=== PATIENT | female | born 1980 | race Caucasian/White ===

== ENCOUNTER 2020-09-11 05:39 | Inpatient (IN) | payer MEDICAID, OTHER ==
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
[2020-09-11] MEDS: Sodium Chloride 0.9% 1,000 ML IV SCH ×2 (06:33→14:30)
[2020-09-11] MEDS ORDERED: Iopamidol 612 MG/ML 100 ML Bottle IVPUSH ONE (09:35)
[2020-09-11] MEDS ORDERED: Sodium Chloride 0.9% 10 ML Syringe FLUSH SCH (09:45)
[2020-09-11] MEDS ORDERED: Piperacillin/Tazobactam 4.5 GM in Sodium Chloride 0.9% 100 ML IV ONE (10:42)
[2020-09-11] MEDS ORDERED: Vancomycin 1.5 GM in Sodium Chloride 0.9% 500 ML IV ONE (12:00)
[2020-09-11] MEDS ORDERED: Ondansetron 4 MG Tab.DIS PO PRN (14:21)
--- NOTE | 2020-09-11 14:25 | PCM.HP.2 ---
H&P History of Present Illness - General Date of Service: 09/11/20 Admit Problem/Dx: Admission Diagnosis/Problem Admission Diagnosis/Problem Cellulitis - History of Present Illness Initial Comments - Free Text/Narative: 40-year-old female with history of methamphetamine use presents to the emergency department because of increasing pain, redness, and swelling on the right side of her face. She states that she had some swelling in the left side of her face earlier this week and it progressed to the right side of the face. Became severe and she presented to the emergency department. She had some lesions on her fingers which she lanced on her own that did have some pus. She had another lesion on her left eyebrow which she also tried to emiliana but no pus was removed. Patient states that for the last 3 weeks she has been using methamphetamines. She denies IV drug use recently. She has been smoking her meth. Patient states that she has used IV drugs in the past. She was clean from drugs for the last 3 years until 3 weeks ago. Her last HIV test was 2 to 3 years ago. Currently she denies any fever, chills, night sweats, weight loss. CT of the face showed marked edema of the right facial soft tissues. Finding is compatible with facial cellulitis. The clinical studies specialist muscle on the right is enlar ged. There is a possible focal fluid collection measuring 1.5 x 1.1 cm within the substance of the mastication muscle. This could represent an intramuscular phlegmon or potentially abscess. Dr. Humble Anderson, the ER physician, discussed the case with Dr. Rao and Dr. Villatoro, ENT and maxillofacial respectively, and they recommended IV antibiotics and thorough dental evaluation. Unfortunately neither [facility] nor we have any dentists available to do consultation in hospital. Therefore, recommendation was to start IV antibiotics and if she improves she could do a thorough dental evaluation sometime this week. She was then started on Zosyn and vancomycin in the emergency department. Right Face/Facial Pain Score (Numeric/FACES): 7 - Related Data Allergies/Adverse Reactions: Allergies Allergy/AdvReac Type Severity Reaction Status Date / Time Penicillins AdvReac Nausea and Verified 09/11/20 15:15 Vomiting Home Medications: Home Meds Albuterol/Ipratropium [Combivent Respimat] 1 dose INH QID 09/11/15 [History] B12/Levomefolate Calcium/B-6 [Foltx Tablet] 1 tab PO BID 09/11/15 [History] Diclofenac Sodium [Diclofenac Sodium ER] 75 mg PO BID 09/11/15 [History] Gabapentin [Neurontin] 400 mg PO TID 09/11/15 [History] Lidocaine 5% [Lidoderm 5%] 1 patch TOP DAILY 09/11/15 [History] Pantoprazole [Protonix] 40 mg PO DAILY 09/11/15 [History] predniSONE [Prednisone] 40 mg PO DAILY #10 tablet 09/11/15 [Rx] Past Medical History HEENT History: Reports: None Cardiovascular History: Reports: None Respiratory History: Reports: Other (See Below) Other Respiratory History: Lung Infection; had surgery to the right lung and also a chest tube Gastrointestinal History: Reports: None Genitourinary History: Reports: None MARKETING DIRECTOR History: Reports: None Musculoskeletal History: Reports: None Neurological History: Reports: None Psychiatric History: Reports: None Endocrine/Metabolic History: Reports: None Hematologic History: Reports: None Immunologic History: Reports: None Oncologic (Cancer) History: Reports: None Dermatologic History: Reports: None - Infectious Disease History Infectious Disease History: Reports: None - Past Surgical History Respiratory Surgical History: Reports: Other (See Below) GI Surgical History: Reports: Other (See Below) Social & Family History - Family History Family Medical History: No Pertinent Family History - Tobacco Use Tobacco Use Status *Q: Current Every Day Tobacco User Years of Tobacco use: 20 Packs/Tins Daily: 0.7 Used Tobacco, but Quit: No - Caffeine Use Caffeine Use: Reports: None - Recreational Drug Use Recreational Drug Use: Yes Recreational Drug Type: Reports: Methamphetamine Recreational Drug Use Frequency: Daily H&P Review of Systems - Review of Systems: Review Of Systems: Comprehensive ROS is negative, except as noted in HPI. Exam - Exam Exam: See Below - Vital Signs Vital Signs: Last Vital Signs Temp 97.7 F 09/11/20 05:50 Pulse 81 09/11/20 05:50 Resp 16 09/11/20 05:50 BP 128/79 09/11/20 05:50 Pulse Ox 98 09/11/20 05:50 Weight: 157 lb 9.6 oz - Exam General: Alert, Oriented, 4 HEENT: Conjunctiva Clear, Hearing Intact, Other (Severe swelling of the face right worse than left. Decreased range of motion of the jaw and therefore thorough evaluation of the teeth was not possible. There were several rotting teeth and dental caries noted.) - Patient Data Lab Results Last 24 hrs: Laboratory Results - last 24 hr 09/11/20 09/11/20 09/11/20 Range/Units 06:19 06:19 06:19 WBC 10.95 H (3.98-10.04) K/mm3 RBC 4.21 (3.98-5.22) M/mm3 Hgb 12.4 D (11.2-15.7) gm/dl Hct 37.7 (34.1-44.9) % MCV 89.5 (79.4-94.8) fl MCH 29.5 (25.6-32.2) pg MCHC 32.9 (32.2-35.5) g/dl RDW Std Deviation 40.7 (36.4-46.3) fL Plt Count 294 (182-369) K/mm3 MPV 9.4 (9.4-12.3) fl Neutrophils % (Manual) 82 H (40-60) % Band Neutrophils % 1 (0-10) % Lymphocytes % (Manual) 10 L (20-40) % Atypical Lymphs % 0 % Monocytes % (Manual) 3 (2-10) % Eosinophils % (Manual) 3 (0.7-5.8) % Basophils % (Manual) 1 (0.1-1.2) Platelet Estimate Adequate Plt Morphology Comment Normal Stomatocytes Few RBC Morph Comment Not Reportable ESR 11 (0-20) mm/hr D-Dimer, Quantitative (0.19-0.50) mg/L Sodium 139 (136-145) mEq/L Potassium 3.5 (3.5-5.1) mEq/L Chloride 102 (98-107) mEq/L Carbon Dioxide 28 (21-32) mEq/L Anion Gap 12.5 (5-15) BUN 11 (7-18) mg/dL Creatinine 0.7 (0.55-1.02) mg/dL Est Cr Clr Drug Dosing TNP Estimated GFR (MDRD) > 60 (>60) mL/min BUN/Creatinine Ratio 15.7 (14-18) Glucose 88 (74-106) mg/dL Lactic Acid (0.4-2.0) mmol/L Calcium 8.7 (8.5-10.1) mg/dL Magnesium 1.9 (1.8-2.4) mg/dl Total Bilirubin 0.5 (0.2-1.0) mg/dL AST 14 L (15-37) U/L ALT 17 (14-59) U/L Alkaline Phosphatase 85 (46-116) U/L Creatine Kinase 83 (26-192) U/L Troponin I < 0.017 (0.00-0.056) ng/mL C-Reactive Protein 3.0 H* (<1.0) mg/dL Total Protein 7.2 (6.4-8.2) g/dl Albumin 3.2 L (3.4-5.0) g/dl Globulin 4.0 gm/dL Albumin/Globulin Ratio 0.8 L (1-2) TSH 3rd Generation 3.141 (0.358-3.74) uIU/mL HCG, Qual (NEGATIVE) Urine Color (Yellow) Urine Appearance (Clear) Urine pH (5.0-8.0) Ur Specific [place] (1.005-1.030) Urine Protein (Negative) Urine Glucose (UA) (Negative) Urine Ketones (Negative) Urine Occult Blood (Negative) Urine Nitrite (Negative) Urine Bilirubin (Negative) Urine Urobilinogen (0.2-1.0) Ur Leukocyte Esterase (Negative) Urine RBC (0-5) /hpf Urine WBC (0-5) /hpf Ur Epithelial Cells (0-5) /hpf Urine Bacteria (FEW) /hpf Urine Mucus (FEW) /hpf Urine Opiates Screen (MELNBF=833) Ur Buprenorphine Scrn (CUTOFF=10) Ur Oxycodone Screen (KSR4KS=737) Urine Methadone Screen (BEJRAP=155) Ur Propoxyphene Screen (NBDSAO=809) Ur Barbiturates Screen (IZDILV=311) Ur Tricyclics Screen (DISQRD=458) Ur Phencyclidine Scrn (CUTOFF=25) Ur Amphetamine Screen (VMOHDC=283) U Methamphetamines Scrn (SMJZGQ=251) U Benzodiazepines Scrn (OGFGHE=225) U Cocaine Metab Screen (XOVVUV=906) U Marijuana (THC) Screen (CUTOFF=50) Ethyl Alcohol 0.00 (0.00) gm% SARS-CoV-2 RNA (DELFINO) (NEGATIVE) MRSA (PCR) 0409/11/20 09/11/20 Range/Units 06:19 06:19 06:19 WBC (3.98-10.04) K/mm3 RBC (3.98-5.22) M/mm3 Hgb (11.2-15.7) gm/dl Hct (34.1-44.9) % MCV (79.4-94.8) fl MCH (25.6-32.2) pg MCHC (32.2-35.5) g/dl RDW Std Deviation (36.4-46.3) fL Plt Count (182-369) K/mm3 MPV (9.4-12.3) fl Neutrophils % (Manual) (40-60) % Band Neutrophils % (0-10) % Lymphocytes % (Manual) (20-40) % Atypical Lymphs % % Monocytes % (Manual) (2-10) % Eosinophils % (Manual) (0.7-5.8) % Basophils % (Manual) (0.1-1.2) Platelet Estimate Plt Morphology Comment Stomatocytes RBC Morph Comment ESR (0-20) mm/hr D-Dimer, Quantitative 0.24 (0.19-0.50) mg/L Sodium (136-145) mEq/L Potassium (3.5-5.1) mEq/L Chloride (98-107) mEq/L Carbon Dioxide (21-32) mEq/L Anion Gap (5-15) BUN (7-18) mg/dL Creatinine (0.55-1.02) mg/dL Est Cr Clr Drug Dosing Estimated GFR (MDRD) (>60) mL/min BUN/Creatinine Ratio (14-18) Glucose (74-106) mg/dL Lactic Acid 0.7 (0.4-2.0) mmol/L Calcium (8.5-10.1) mg/dL Magnesium (1.8-2.4) mg/dl Total Bilirubin (0.2-1.0) mg/dL AST (15-37) U/L ALT (14-59) U/L Alkaline Phosphatase (46-116) U/L Creatine Kinase (26-192) U/L Troponin I (0.00-0.056) ng/mL C-Reactive Protein (<1.0) mg/dL Total Protein (6.4-8.2) g/dl Albumin (3.4-5.0) g/dl Globulin gm/dL Albumin/Globulin Ratio (1-2) TSH 3rd Generation (0.358-3.74) uIU/mL HCG, Qual Negative (NEGATIVE) Urine Color (Yellow) Urine Appearance (Clear) Urine pH (5.0-8.0) Ur Specific [place] (1.005-1.030) Urine Protein (Negative) Urine Glucose (UA) (Negative) Urine Ketones (Negative) Urine Occult Blood (Negative) Urine Nitrite (Negative) Urine Bilirubin (Negative) Urine Urobilinogen (0.2-1.0) Ur Leukocyte Esterase (Negative) Urine RBC (0-5) /hpf Urine WBC (0-5) /hpf Ur Epithelial Cells (0-5) /hpf Urine Bacteria (FEW) /hpf Urine Mucus (FEW) /hpf Urine Opiates Screen (VMTHZO=684) Ur Buprenorphine Scrn (CUTOFF=10) Ur Oxycodone Screen (YPV2OL=395) Urine Methadone Screen (PDNBOH=251) Ur Propoxyphene Screen (EUHSBD=845) Ur Barbiturates Screen (QCIHAM=128) Ur Tricyclics Screen (QMSIDN=252) Ur Phencyclidine Scrn (CUTOFF=25) Ur Amphetamine Screen (ZVWDNU=593) U Methamphetamines Scrn (GOXHEF=019) U Benzodiazepines Scrn (LRZJDX=698) U Cocaine Metab Screen (RUQJVF=175) U Marijuana (THC) Screen (CUTOFF=50) Ethyl Alcohol (0.00) gm% SARS-CoV-2 RNA (DELFINO) (NEGATIVE) MRSA (PCR) 09/11/20 09/11/20 09/11/20 Range/Units 06:35 07:55 07:55 WBC (3.98-10.04) K/mm3 RBC (3.98-5.22) M/mm3 Hgb (11.2-15.7) gm/dl Hct (34.1-44.9) % MCV (79.4-94.8) fl MCH (25.6-32.2) pg MCHC (32.2-35.5) g/dl RDW Std Deviation (36.4-46.3) fL Plt Count (182-369) K/mm3 MPV (9.4-12.3) fl Neutrophils % (Manual) (40-60) % Band Neutrophils % (0-10) % Lymphocytes % (Manual) (20-40) % Atypical Lymphs % % Monocytes % (Manual) (2-10) % Eosinophils % (Manual) (0.7-5.8) % Basophils % (Manual) (0.1-1.2) Platelet Estimate Plt Morphology Comment Stomatocytes RBC Morph Comment ESR (0-20) mm/hr D-Dimer, Quantitative (0.19-0.50) mg/L Sodium (136-145) mEq/L Potassium (3.5-5.1) mEq/L Chloride (98-107) mEq/L Carbon Dioxide (21-32) mEq/L Anion Gap (5-15) BUN (7-18) mg/dL Creatinine (0.55-1.02) mg/dL Est Cr Clr Drug Dosing Estimated GFR (MDRD) (>60) mL/min BUN/Creatinine Ratio (14-18) Glucose (74-106) mg/dL Lactic Acid (0.4-2.0) mmol/L Calcium (8.5-10.1) mg/dL Magnesium (1.8-2.4) mg/dl Total Bilirubin (0.2-1.0) mg/dL AST (15-37) U/L ALT (14-59) U/L Alkaline Phosphatase (46-116) U/L Creatine Kinase (26-192) U/L Troponin I (0.00-0.056) ng/mL C-Reactive Protein (<1.0) mg/dL Total Protein (6.4-8.2) g/dl Albumin (3.4-5.0) g/dl Globulin gm/dL Albumin/Globulin Ratio (1-2) TSH 3rd Generation (0.358-3.74) uIU/mL HCG, Qual (NEGATIVE) Urine Color Yellow (Yellow) Urine Appearance Clear (Clear) Urine pH 6.5 (5.0-8.0) Ur Specific [place] 1.025 (1.005-1.030) Urine Protein Negative (Negative) Urine Glucose (UA) Negative (Negative) Urine Ketones Negative (Negative) Urine Occult Blood Negative (Negative) Urine Nitrite Negative (Negative) Urine Bilirubin Negative (Negative) Urine Urobilinogen 0.2 (0.2-1.0) Ur Leukocyte Esterase 1+ H (Negative) Urine RBC 0-5 (0-5) /hpf Urine WBC 0-5 (0-5) /hpf Ur Epithelial Cells 0-5 (0-5) /hpf Urine Bacteria Few (FEW) /hpf Urine Mucus Rare (FEW) /hpf Urine Opiates Screen Negative (LNBPBJ=061) Ur Buprenorphine Scrn Negative (CUTOFF=10) Ur Oxycodone Screen Negative (MAI2BN=905) Urine Methadone Screen Negative (IGBSUY=850) Ur Propoxyphene Screen Negative (ORBPUI=677) Ur Barbiturates Screen Negative (WJYTYM=837) Ur Tricyclics Screen Negative (ZPJUHL=370) Ur Phencyclidine Scrn Negative (CUTOFF=25) Ur Amphetamine Screen Presumptive positive H (IVSGDM=792) U Methamphetamines Scrn Presumptive positive H (XTNNIB=783) U Benzodiazepines Scrn Negative (EWVBQQ=122) U Cocaine Metab Screen Negative (JGWUKM=480) U Marijuana (THC) Screen Negative (CUTOFF=50) Ethyl Alcohol (0.00) gm% SARS-CoV-2 RNA (DELFINO) Negative (NEGATIVE) MRSA (PCR) 09/11/20 Range/Units 08:27 WBC (3.98-10.04) K/mm3 RBC (3.98-5.22) M/mm3 Hgb (11.2-15.7) gm/dl Hct (34.1-44.9) % MCV (79.4-94.8) fl MCH (25.6-32.2) pg MCHC (32.2-35.5) g/dl RDW Std Deviation (36.4-46.3) fL Plt Count (182-369) K/mm3 MPV (9.4-12.3) fl Neutrophils % (Manual) (40-60) % Band Neutrophils % (0-10) % Lymphocytes % (Manual) (20-40) % Atypical Lymphs % % Monocytes % (Manual) (2-10) % Eosinophils % (Manual) (0.7-5.8) % Basophils % (Manual) (0.1-1.2) Platelet Estimate Plt Morphology Comment Stomatocytes RBC Morph Comment ESR (0-20) mm/hr D-Dimer, Quantitative (0.19-0.50) mg/L Sodium (136-145) mEq/L Potassium (3.5-5.1) mEq/L Chloride (98-107) mEq/L Carbon Dioxide (21-32) mEq/L Anion Gap (5-15) BUN (7-18) mg/dL Creatinine (0.55-1.02) mg/dL Est Cr Clr Drug Dosing Estimated GFR (MDRD) (>60) mL/min BUN/Creatinine Ratio (14-18) Glucose (74-106) mg/dL Lactic Acid (0.4-2.0) mmol/L Calcium (8.5-10.1) mg/dL Magnesium (1.8-2.4) mg/dl Total Bilirubin (0.2-1.0) mg/dL AST (15-37) U/L ALT (14-59) U/L Alkaline Phosphatase (46-116) U/L Creatine Kinase (26-192) U/L Troponin I (0.00-0.056) ng/mL C-Reactive Protein (<1.0) mg/dL Total Protein (6.4-8.2) g/dl Albumin (3.4-5.0) g/dl Globulin gm/dL Albumin/Globulin Ratio (1-2) TSH 3rd Generation (0.358-3.74) uIU/mL HCG, Qual (NEGATIVE) Urine Color (Yellow) Urine Appearance (Clear) Urine pH (5.0-8.0) Ur Specific [place] (1.005-1.030) Urine Protein (Negative) Urine Glucose (UA) (Negative) Urine Ketones (Negative) Urine Occult Blood (Negative) Urine Nitrite (Negative) Urine Bilirubin (Negative) Urine Urobilinogen (0.2-1.0) Ur Leukocyte Esterase (Negative) Urine RBC (0-5) /hpf Urine WBC (0-5) /hpf Ur Epithelial Cells (0-5) /hpf Urine Bacteria (FEW) /hpf Urine Mucus (FEW) /hpf Urine Opiates Screen (DMLALB=247) Ur Buprenorphine Scrn (CUTOFF=10) Ur Oxycodone Screen (TBE3WQ=194) Urine Methadone Screen (ROTVJS=966) Ur Propoxyphene Screen (IKQUPQ=418) Ur Barbiturates Screen (DLZTMY=077) Ur Tricyclics Screen (EGRTCY=696) Ur Phencyclidine Scrn (CUTOFF=25) Ur Amphetamine Screen (RPQQZY=475) U Methamphetamines Scrn (XKUPWB=986) U Benzodiazepines Scrn (WQBTZJ=005) U Cocaine Metab Screen (MJQWQT=373) U Marijuana (THC) Screen (CUTOFF=50) Ethyl Alcohol (0.00) gm% SARS-CoV-2 RNA (DELFINO) (NEGATIVE) MRSA (PCR) Negative Result Diagrams: 09/11/20 06:19 09/11/20 06:19 Sepsis Event Note - Evaluation Sepsis Screening Result: No Definite Risk - Focused Exam Vital Signs: Vital Signs Temp Pulse Resp BP Pulse Ox 09/11/20 05:50 97.7 F 81 16 128/79 98 - Problem List (1) Methamphetamine abuse SNOMED Code(s): 939340511 ICD Code: F15.10 - OTHER STIMULANT ABUSE, UNCOMPLICATED Status: Acute Current Visit: Yes (2) Cellulitis of face SNOMED Code(s): 882715134 ICD Code: L03.211 - CELLULITIS OF FACE Status: Acute Current Visit: Yes Problem List Initiated/Reviewed/Updated: Yes Orders Last 24hrs: Active Orders 24 hr Category Date Time Status Admission Status [Patient Status] [ADT] Routine ADT 09/11/20 12:05 Active Oxygen Therapy [RC] PRN Care 09/11/20 14:21 Ordered Up ad Nisha [RC] ASDIRECTED Care 09/11/20 14:21 Ordered VTE/DVT Education [RC] PER UNIT ROUTINE Care 09/11/20 14:21 Ordered Vital Signs [RC] Q4H Care 09/11/20 14:21 Ordered Regular Diet [DIET] Diet 09/11/20 Dinner Ordered Chest 1V Frontal [CR] Stat Exams 09/11/20 05:55 Taken Soft Tissue Neck w Cont [CT] Stat Exams 09/11/20 08:24 Taken CBC WITH AUTO DIFF [HEME] AM Lab 09/12/20 05:11 Ordered CMP [COMPREHENSIVE METABOLIC PN,CMP] [CHEM] AM Lab 09/12/20 05:11 Ordered CULTURE BLOOD [BC] Stat Lab 09/11/20 06:19 Received CULTURE BLOOD [BC] Stat Lab 09/11/20 06:30 Received CULTURE URINE [RM] Stat Lab 09/11/20 07:55 Received HEPATITIS C ANTIBODY [CHEM] Routine Lab 09/11/20 14:24 Ordered HIV RAPID SCREEN RLFX COMFIRM [CHEM] Routine Lab 09/11/20 14:23 Ordered MAGNESIUM [CHEM] AM Lab 09/12/20 05:11 Ordered VANCOMYCIN TROUGH [CHEM] Timed Lab 09/13/20 09:30 Ordered Acetaminophen [TylenoL] Med 09/11/20 14:21 Ordered 650 mg PO Q4H PRN Enoxaparin [Lovenox] Med 09/12/20 09:00 Ordered 40 mg SUBCUT DAILY Ondansetron [Zofran ODT] Med 09/11/20 14:21 Ordered 4 mg PO Q4H PRN Pharmacy to Dose - Vancomycin Med 09/11/20 14:15 Ordered 1 dose .XX ASDIRECTED Piperacillin/Tazobactam [Piperacil-Tazobact] 4.5 gm Med 09/11/20 14:15 Ordered Sodium Chloride 0.9% [Normal Saline] 100 ml IV Q8H Sodium Chloride 0.9% [Normal Saline] 1,000 ml Med 09/11/20 06:00 Active IV ASDIRECTED Sodium Chloride 0.9% [Saline Flush] Med 09/11/20 09:45 Active 10 ml FLUSH ASDIRECTED Vancomycin [Vancocin] 1 gm Med 09/11/20 22:00 Active Sodium Chloride 0.9% [Normal Saline (AdvBag)] 250 ml IV Q12H oxyCODONE Med 09/11/20 14:21 Ordered 5 - 10 mg PO Q4H PRN Blood Culture x2 Reflex Set [OM.PC] Stat Oth 09/11/20 05:56 Ordered Resuscitation Status Routine Resus Stat 09/11/20 14:21 Ordered Medication Orders Acetaminophen (Acetaminophen 325 Mg Tab) 650 mg PO Q4H PRN PRN Reason: Pain (Mild 1-3)/fever Enoxaparin Sodium (Enoxaparin 40 Mg/0.4 Ml Syringe) 40 mg SUBCUT DAILY [facility] Sodium Chloride (Normal Saline) 1,000 mls @ 150 mls/hr IV ASDIRECTED ALIREZA Last Admin: 09/11/20 06:33 Dose: 150 mls/hr Documented by: DINORA Piperacillin Sod/Tazobactam (Sod 4.5 gm/ Sodium Chloride) 100 mls @ 25 mls/hr IV Q8H ALIREZA Vancomycin HCl 1 gm/ Sodium (Chloride) 250 mls @ 250 mls/hr IV Q12H ALIREZA Ondansetron HCl (Ondansetron 4 Mg Tab.Dis) 4 mg PO Q4H PRN PRN Reason: nausea, able to take PO Oxycodone HCl (Oxycodone 5 Mg Tab) 5 - 10 mg PO Q4H PRN PRN Reason: Pain (moderate 4-6) Sodium Chloride (Sodium Chloride 0.9% 10 Ml Syringe) 10 ml FLUSH ASDIRECTED [facility] Last Admin: 09/11/20 09:56 Dose: 10 ml Documented by: KARO Vancomycin HCl (Pharmacy To Dose - Vancomycin) 1 dose .XX ASDIRECTED [facility] Assessment/Plan Comment:: Assessment 40-year-old female with history of methamphetamine abuse presents to the emergency department with worsening of facial swelling for the last several days. Cellulitis of the face Possible 1.5 x 1.1 cm abscess within the substance of the clinical studies specialist muscle * CT scan shows right-sided facial cellulitis with possible abscess * Mildly elevated WBC 10.95 with 82% neutrophils of 1% bands * ESR normal at 11 * CRP 3.0 * Lactic acid 0.7 * No signs of sepsis. * Started on Zosyn and vancomycin in the emergency department * Dr. Paredes, ER physician, consulted both ENT, Dr. Rao and maxillofacial surgeon, Dr. Villatoro Plan * Admit to medical floor * Continue Zosyn and vancomycin * Follow CBC, CRP, CMP Methamphetamine abuse * Discussed with the patient and appears she does want some help with her addiction * Will get HIV and hepatitis C screen * Consult social media editor VTE prophylaxis with Lovenox CODE STATUS full code - Mortality Measure Prognosis:: Good
[2020-09-11] MEDS: Piperacillin/Tazobactam 4.5 GM in Sodium Chloride 0.9% 100 ML IV SCH (18:04)
[2020-09-11] MEDS: oxyCODONE 5 MG Tab PO PRN (18:53)
[2020-09-12] MEDS: Piperacillin/Tazobactam 4.5 GM in Sodium Chloride 0.9% 100 ML IV SCH ×3 (03:38→20:07)
[2020-09-12] MEDS: oxyCODONE 5 MG Tab PO PRN ×3 (03:38→16:28)
--- NOTE | 2020-09-12 07:52 | CT ---
CT neck Technique: Multiple axial sections through the neck were obtained. Intravenous contrast was utilized. Reconstructed coronal and sagittal images were obtained. Comparison: No prior neck exam is available. Findings: There is prominent soft tissue edema and skin thickening noted within the right side of the neck. Edema is noted within the right parotid salivary gland. There is low density also noted within the right masseter muscle. Visualized lung apices show nothing acute. Thyroid gland shows no nodule. No adenopathy is appreciated. Right and left globes are symmetric. Impression: 1. Prominent soft tissue edema and skin thickening within the right side of the neck. Edema is seen within the right parotid salivary gland and within the right masseter muscle presumably due to additional infection. Findings raise the possibility of risk for subsequent abscess formation. 2. No additional abnormality is appreciated on CT study of the neck. Diagnostic code #3 I slightly disagree with preliminary report from obdulio (additional finding of edema within the right parotid salivary gland), finalized on 09/11/20, 11:13 AM CDT
[2020-09-12] MEDS ORDERED: Enoxaparin 40 MG/0.4 ML Syringe SUBCUT SCH (09:00)
--- NOTE | 2020-09-12 09:12 | PCM.PN ---
- General Info Date of Service: 09/12/20 Admission Dx/Problem (Free Text): Admission Diagnosis/Problem Admission Diagnosis/Problem Cellulitis Subjective Update: In to see Jacqueline. She reports that her face still hurts but that the swelling has gone down. She reports she can open her mouth slightly more. We discussed dentist after discharge and she has apparently been talking to a free dental program who can get her in. Potassium was low today and was supplem ented. She continues to improve. We will continue IV antibiotics for now. Functional Status: Reports: Pain Controlled, Tolerating Diet, Ambulating, Urinating. Denies: New Symptoms - Review of Systems General: Reports: No Symptoms. Denies: Fever, Weakness, Fatigue, Malaise, Chills HEENT: Reports: Other (Facial pain and difficulty opening mouth ). Denies: Headaches, Sore Throat Pulmonary: Reports: No Symptoms. Denies: Shortness of Breath, Cough, Sputum, Wheezing Cardiovascular: Reports: No Symptoms. Denies: Chest Pain, Palpitations, Dyspnea on Exertion Gastrointestinal: Reports: No Symptoms. Denies: Abdominal Pain, Constipation, Diarrhea, Nausea, Vomiting Genitourinary: Reports: No Symptoms. Denies: Pain Musculoskeletal: Reports: No Symptoms Skin: Reports: No Symptoms. Denies: Cyanosis Neurological: Reports: No Symptoms. Denies: Confusion, Difficulty Walking, Gait Disturbance Psychiatric: Reports: No Symptoms - Patient Data Vitals - Most Recent: Last Vital Signs Temp 97.9 F 09/12/20 07:58 Pulse 73 09/12/20 07:58 Resp 14 09/12/20 07:58 BP 106/63 09/12/20 07:58 Pulse Ox 98 09/12/20 07:58 Weight - Most Recent: 158 lb 1.6 oz I&O - Last 24 Hours: Intake & Output 09/11/20 09/12/20 09/12/20 22:59 06:59 14:59 Intake Total 1350 1780 Output Total 200 900 Balance 1150 880 Lab Results Last 24 Hours: Laboratory Results - last 24 hr 09/11/20 09/11/20 09/12/20 Range/Units 06:19 08:27 04:38 WBC 8.67 (3.98-10.04) K/mm3 RBC 4.19 (3.98-5.22) M/mm3 Hgb 12.2 (11.2-15.7) gm/dl Hct 37.8 (34.1-44.9) % MCV 90.2 (79.4-94.8) fl MCH 29.1 (25.6-32.2) pg MCHC 32.3 (32.2-35.5) g/dl RDW Std Deviation 40.4 (36.4-46.3) fL Plt Count 278 (182-369) K/mm3 MPV 9.7 (9.4-12.3) fl Neut % (Auto) 78.0 H (34.0-71.1) % Lymph % (Auto) 14.1 L (19.3-51.7) % [place] % (Auto) 6.8 (4.7-12.5) % Eos % (Auto) 0.8 (0.7-5.8) Baso % (Auto) 0.2 (0.1-1.2) % Neut # (Auto) 6.76 H (1.56-6.13) K/mm3 Lymph # (Auto) 1.22 (1.18-3.74) K/mm3 [place] # (Auto) 0.59 H (0.24-0.36) K/mm3 Eos # (Auto) 0.07 (0.04-0.36) K/mm3 Baso # (Auto) 0.02 (0.01-0.08) K/mm3 Sodium (136-145) mEq/L Potassium (3.5-5.1) mEq/L Chloride (98-107) mEq/L Carbon Dioxide (21-32) mEq/L Anion Gap (5-15) BUN (7-18) mg/dL Creatinine (0.55-1.02) mg/dL Est Cr Clr Drug Dosing mL/min Estimated GFR (MDRD) (>60) mL/min BUN/Creatinine Ratio (14-18) Glucose (74-106) mg/dL Calcium (8.5-10.1) mg/dL Magnesium (1.8-2.4) mg/dl Total Bilirubin (0.2-1.0) mg/dL AST (15-37) U/L ALT (14-59) U/L Alkaline Phosphatase (46-116) U/L Total Protein (6.4-8.2) g/dl Albumin (3.4-5.0) g/dl Globulin gm/dL Albumin/Globulin Ratio (1-2) Hepatitis C Antibody Negative (NEGATIVE) HIV-1 Ab Rapid Screen Negative (NEGATIVE) MRSA (PCR) Negative 09/12/20 Range/Units 04:38 WBC (3.98-10.04) K/mm3 RBC (3.98-5.22) M/mm3 Hgb (11.2-15.7) gm/dl Hct (34.1-44.9) % MCV (79.4-94.8) fl MCH (25.6-32.2) pg MCHC (32.2-35.5) g/dl RDW Std Deviation (36.4-46.3) fL Plt Count (182-369) K/mm3 MPV (9.4-12.3) fl Neut % (Auto) (34.0-71.1) % Lymph % (Auto) (19.3-51.7) % [place] % (Auto) (4.7-12.5) % Eos % (Auto) (0.7-5.8) Baso % (Auto) (0.1-1.2) % Neut # (Auto) (1.56-6.13) K/mm3 Lymph # (Auto) (1.18-3.74) K/mm3 [place] # (Auto) (0.24-0.36) K/mm3 Eos # (Auto) (0.04-0.36) K/mm3 Baso # (Auto) (0.01-0.08) K/mm3 Sodium 141 (136-145) mEq/L Potassium 3.4 L (3.5-5.1) mEq/L Chloride 105 (98-107) mEq/L Carbon Dioxide 25 (21-32) mEq/L Anion Gap 14.4 (5-15) BUN 5 L (7-18) mg/dL Creatinine 0.8 (0.55-1.02) mg/dL Est Cr Clr Drug Dosing 96.18 mL/min Estimated GFR (MDRD) > 60 (>60) mL/min BUN/Creatinine Ratio 6.3 L (14-18) Glucose 159 H (74-106) mg/dL Calcium 8.3 L (8.5-10.1) mg/dL Magnesium 2.1 (1.8-2.4) mg/dl Total Bilirubin 0.8 (0.2-1.0) mg/dL AST 14 L (15-37) U/L ALT 16 (14-59) U/L Alkaline Phosphatase 76 (46-116) U/L Total Protein 6.8 (6.4-8.2) g/dl Albumin 2.8 L (3.4-5.0) g/dl Globulin 4.0 gm/dL Albumin/Globulin Ratio 0.7 L (1-2) Hepatitis C Antibody (NEGATIVE) HIV-1 Ab Rapid Screen (NEGATIVE) MRSA (PCR) Benjamin Results Last 24 Hours: Microbiology 09/11/20 06:30 Aerobic Blood Culture - Preliminary Blood - Venous - Lab Draw NO GROWTH AFTER 1 DAY Anaerobic Blood Culture - Preliminary NO GROWTH AFTER 1 DAY 09/11/20 06:19 Aerobic Blood Culture - Preliminary Blood - Venous NO GROWTH AFTER 1 DAY Anaerobic Blood Culture - Preliminary NO GROWTH AFTER 1 DAY Med Orders - Current: Current Medications Acetaminophen (Acetaminophen 325 Mg Tab) 650 mg PO Q4H PRN PRN Reason: Pain (Mild 1-3)/fever Enoxaparin Sodium (Enoxaparin 40 Mg/0.4 Ml Syringe) 40 mg SUBCUT DAILY COUNTS INCLUDE 234 BEDS AT THE [facility] Piperacillin Sod/Tazobactam (Sod 4.5 gm/ Sodium Chloride) 100 mls @ 25 mls/hr IV Q8H COUNTS INCLUDE 234 BEDS AT THE [facility] Last Admin: 09/12/20 03:38 Dose: 25 mls/hr Documented by: Vancomycin HCl 1 gm/ Sodium (Chloride) 250 mls @ 250 mls/hr IV Q12H COUNTS INCLUDE 234 BEDS AT THE [facility] Last Admin: 09/11/20 21:46 Dose: 250 mls/hr Documented by: Ondansetron HCl (Ondansetron 4 Mg Tab.Dis) 4 mg PO Q4H PRN PRN Reason: nausea, able to take PO Oxycodone HCl (Oxycodone 5 Mg Tab) 5 - 10 mg PO Q4H PRN PRN Reason: Pain (moderate 4-6) Last Admin: 09/12/20 03:38 Dose: 5 mg Documented by: Sodium Chloride (Sodium Chloride 0.9% 10 Ml Syringe) 10 ml FLUSH ASDIRECTED COUNTS INCLUDE 234 BEDS AT THE [facility] Last Admin: 09/11/20 09:56 Dose: 10 ml Documented by: Vancomycin HCl (Pharmacy To Dose - Vancomycin) 1 dose .XX ASDIRECTED PRN PRN Reason: RX TO DOSE VANCO Discontinued Medications Sodium Chloride (Normal Saline) 1,000 mls @ 150 mls/hr IV ASDIRECTED ALIREZA Last Admin: 09/11/20 14:30 Dose: 150 mls/hr Documented by: Piperacillin Sod/Tazobactam (Sod 4.5 gm/ Sodium Chloride) 100 mls @ 200 mls/hr IV ONETIME ONE Stop: 09/11/20 11:11 Last Admin: 09/11/20 11:14 Dose: 200 mls/hr Documented by: Vancomycin HCl 1.5 gm/ Sodium (Chloride) 500 mls @ 250 mls/hr IV ONETIME ONE Stop: 09/11/20 13:59 Last Admin: 09/11/20 12:17 Dose: 250 mls/hr Documented by: Iopamidol (Iopamidol 612 Mg/Ml 100 Ml Bottle) 100 ml IVPUSH ONETIME ONE Stop: 09/11/20 09:36 Last Admin: 09/11/20 09:56 Dose: 100 ml Documented by: Vancomycin HCl (Pharmacy To Dose - Vancomycin) 1 dose .XX ONETIME ONE Stop: 09/11/20 11:42 Last Admin: 09/11/20 15:39 Dose: Not Given Documented by: - Exam Quality Assessment: No: Supplemental Oxygen, Urine Catheter, DVT Prophylaxis (VTE score of 0) General: Alert, Oriented, Cooperative, No Acute Distress HEENT: Pupils Equal, Pupils Reactive, Mucous Membr. Moist/[place] Neck: Supple, Trachea Midline Lungs: Clear to Auscultation, Normal Respiratory Effort Cardiovascular: Regular Rate, Regular Rhythm GI/Abdominal Exam: Normal Bowel Sounds, Soft, Non-Tender, No Distention (Female) Exam: Deferred Back Exam: Normal Inspection, Full Range of Motion Extremities: Normal Inspection, Normal Range of Motion, Non-Tender, No Pedal Edema, Normal Capillary Refill Peripheral Pulses: 3+: Radial (L), Radial (R), Dorsalis Pedis (L), Dorsalis Pedis (R) Skin: Warm, Dry, Intact Neurological: No New Focal Deficit Psy/Mental Status: Alert - Patient Data Lab Results Last 24 hrs: Laboratory Results - last 24 hr 09/11/20 09/11/20 09/12/20 Range/Units 06:19 08:27 04:38 WBC 8.67 (3.98-10.04) K/mm3 RBC 4.19 (3.98-5.22) M/mm3 Hgb 12.2 (11.2-15.7) gm/dl Hct 37.8 (34.1-44.9) % MCV 90.2 (79.4-94.8) fl MCH 29.1 (25.6-32.2) pg MCHC 32.3 (32.2-35.5) g/dl RDW Std Deviation 40.4 (36.4-46.3) fL Plt Count 278 (182-369) K/mm3 MPV 9.7 (9.4-12.3) fl Neut % (Auto) 78.0 H (34.0-71.1) % Lymph % (Auto) 14.1 L (19.3-51.7) % [place] % (Auto) 6.8 (4.7-12.5) % Eos % (Auto) 0.8 (0.7-5.8) Baso % (Auto) 0.2 (0.1-1.2) % Neut # (Auto) 6.76 H (1.56-6.13) K/mm3 Lymph # (Auto) 1.22 (1.18-3.74) K/mm3 [place] # (Auto) 0.59 H (0.24-0.36) K/mm3 Eos # (Auto) 0.07 (0.04-0.36) K/mm3 Baso # (Auto) 0.02 (0.01-0.08) K/mm3 Sodium (136-145) mEq/L Potassium (3.5-5.1) mEq/L Chloride (98-107) mEq/L Carbon Dioxide (21-32) mEq/L Anion Gap (5-15) BUN (7-18) mg/dL Creatinine (0.55-1.02) mg/dL Est Cr Clr Drug Dosing mL/min Estimated GFR (MDRD) (>60) mL/min BUN/Creatinine Ratio (14-18) Glucose (74-106) mg/dL Calcium (8.5-10.1) mg/dL Magnesium (1.8-2.4) mg/dl Total Bilirubin (0.2-1.0) mg/dL AST (15-37) U/L ALT (14-59) U/L Alkaline Phosphatase (46-116) U/L Total Protein (6.4-8.2) g/dl Albumin (3.4-5.0) g/dl Globulin gm/dL Albumin/Globulin Ratio (1-2) Hepatitis C Antibody Negative (NEGATIVE) HIV-1 Ab Rapid Screen Negative (NEGATIVE) MRSA (PCR) Negative 09/12/20 Range/Units 04:38 WBC (3.98-10.04) K/mm3 RBC (3.98-5.22) M/mm3 Hgb (11.2-15.7) gm/dl Hct (34.1-44.9) % MCV (79.4-94.8) fl MCH (25.6-32.2) pg MCHC (32.2-35.5) g/dl RDW Std Deviation (36.4-46.3) fL Plt Count (182-369) K/mm3 MPV (9.4-12.3) fl Neut % (Auto) (34.0-71.1) % Lymph % (Auto) (19.3-51.7) % [place] % (Auto) (4.7-12.5) % Eos % (Auto) (0.7-5.8) Baso % (Auto) (0.1-1.2) % Neut # (Auto) (1.56-6.13) K/mm3 Lymph # (Auto) (1.18-3.74) K/mm3 [place] # (Auto) (0.24-0.36) K/mm3 Eos # (Auto) (0.04-0.36) K/mm3 Baso # (Auto) (0.01-0.08) K/mm3 Sodium 141 (136-145) mEq/L Potassium 3.4 L (3.5-5.1) mEq/L Chloride 105 (98-107) mEq/L Carbon Dioxide 25 (21-32) mEq/L Anion Gap 14.4 (5-15) BUN 5 L (7-18) mg/dL Creatinine 0.8 (0.55-1.02) mg/dL Est Cr Clr Drug Dosing 96.18 mL/min Estimated GFR (MDRD) > 60 (>60) mL/min BUN/Creatinine Ratio 6.3 L (14-18) Glucose 159 H (74-106) mg/dL Calcium 8.3 L (8.5-10.1) mg/dL Magnesium 2.1 (1.8-2.4) mg/dl Total Bilirubin 0.8 (0.2-1.0) mg/dL AST 14 L (15-37) U/L ALT 16 (14-59) U/L Alkaline Phosphatase 76 (46-116) U/L Total Protein 6.8 (6.4-8.2) g/dl Albumin 2.8 L (3.4-5.0) g/dl Globulin 4.0 gm/dL Albumin/Globulin Ratio 0.7 L (1-2) Hepatitis C Antibody (NEGATIVE) HIV-1 Ab Rapid Screen (NEGATIVE) MRSA (PCR) Result Diagrams: 09/12/20 04:38 09/12/20 04:38 Benjamin Results Last 24 hrs: Microbiology 09/11/20 06:30 Aerobic Blood Culture - Preliminary Blood - Venous - Lab Draw NO GROWTH AFTER 1 DAY Anaerobic Blood Culture - Preliminary NO GROWTH AFTER 1 DAY 09/11/20 06:19 Aerobic Blood Culture - Preliminary Blood - Venous NO GROWTH AFTER 1 DAY Anaerobic Blood Culture - Preliminary NO GROWTH AFTER 1 DAY Sepsis Event Note - Evaluation Sepsis Screening Result: No Definite Risk - Focused Exam Vital Signs: Vital Signs Temp Pulse Resp BP Pulse Ox 09/12/20 07:58 97.9 F 73 14 106/63 98 09/12/20 03:20 98.2 F 71 12 111/82 96 09/11/20 21:43 99.1 F 74 14 106/66 95 - Problem List & Annotations (1) Hypokalemia SNOMED Code(s): 42539387 Code(s): E87.6 - HYPOKALEMIA Status: Acute Priority: High Current Visit: Yes (2) Cellulitis of face SNOMED Code(s): 317530874 Code(s): L03.211 - CELLULITIS OF FACE Status: Acute Priority: High Current Visit: Yes (3) Methamphetamine abuse SNOMED Code(s): 065714906 Code(s): F15.10 - OTHER STIMULANT ABUSE, UNCOMPLICATED Status: Acute Priority: High Current Visit: Yes - Problem List Review Problem List Initiated/Reviewed/Updated: Yes - Plan Plan:: Assessment 40-year-old female with history of methamphetamine abuse presents to the emergency department with worsening of facial swelling for the last several days. 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 * Started on Zosyn and vancomycin in the emergency department * Dr. Paredes, ER physician, consulted both ENT, Dr. Rao and maxillofacial surgeon, Dr. Villatoro Plan * Admit to medical floor * Continue Zosyn and vancomycin * Follow CBC, CRP, CMP Methamphetamine abuse * Discussed with the patient and appears she does want some help with her addiction * Will get HIV and hepatitis C screen - negative * Consult social secretary Hypokalemia * Potassium 3.4 Plan * Supplement VTE prophylaxis - not indicated. VTE score of 0 CODE STATUS full code
[2020-09-12] MEDS: Potassium Chloride 20 MEQ Tab.ER PO SCH ×2 (09:38→20:07)
[2020-09-12] MEDS: Acetaminophen 325 MG Tab PO PRN ×2 (09:39→16:29)
--- NOTE | 2020-09-12 09:57 | CR ---
Chest: Portable view of the chest was obtained. Comparison: Prior chest x-ray of 08/29/15. Heart size and mediastinum are normal. Lungs are clear with no acute parenchymal change. Slight nodularity is noted within the left lung base which is felt to be stable from prior exam. No acute osseous finding is appreciated. Impression: 1. Nothing acute is appreciated on portable chest x-ray. Diagnostic code #2
[2020-09-13] MEDS: Piperacillin/Tazobactam 4.5 GM in Sodium Chloride 0.9% 100 ML IV SCH ×2 (04:01→10:49)
[2020-09-13] MEDS: Acetaminophen 325 MG Tab PO PRN (04:02)
[2020-09-13] MEDS: oxyCODONE 5 MG Tab PO PRN (04:02)
[2020-09-13] MEDS ORDERED: Potassium Chloride 20 MEQ Tab.ER PO ONE (09:00)
[2020-09-13] MEDS ORDERED: Nicotine 21 MG/24 Hr Patch TRDERM SCH (09:00)
--- NOTE | 2020-09-13 10:40 | PCM.DCSUM1 ---
Discharge Summary - Hospital Course HPI Initial Comments: 40-year-old female with history of methamphetamine use presents to the emergency department because of increasing pain, redness, and swelling on the right side of her face. She states that she had some swelling in the left side of her face earlier this week and it progressed to the right side of the face. Became severe and she presented to the emergency department. She had some lesions on her fingers which she lanced on her own that did have some pus. She had another lesion on her left eyebrow which she also tried to emiliana but no pus was removed. Patient states that for the last 3 weeks she has been using methamphetamines. She denies IV drug use recently. She has been smoking her meth. Patient states that she has used IV drugs in the past. She was clean from drugs for the last 3 years until 3 weeks ago. Her last HIV test was 2 to 3 years ago. Currently she denies any fever, chills, night sweats, weight loss. CT of the face showed marked edema of the right facial soft tissues. Finding is compatible with facial cellulitis. The hvac designer muscle on the right is enlarged. There is a possible focal fluid collection measuring 1.5 x 1.1 cm within the substance of the mastication muscle. This could represent an intramuscular phlegmon or potentially abscess. Dr. Paredes, the ER physician, discussed the case with Dr. Rao and Dr. Villatoro, ENT and maxillofacial respectively, and they recommended IV antibiotics and thorough dental evaluation. Unfortunately neither [facility] nor we have any dentists available to do consultation in hospital. Therefore, recommendation was to start IV antibiotics and if she improves she could do a thorough dental evaluation sometime this week. She was then started on Zosyn and vancomycin in the emergency department. Diagnosis: Stroke: No - Discharge Data Discharge Date: 09/13/20 (Admit date: 09/11/20) Discharge Disposition: Home, Self-Care 01 Condition: Good - Referral to Home Health Primary Care Physician: PCP None - Discharge Diagnosis/Problem(s) (1) Hypokalemia SNOMED Code(s): 30259040 ICD Code: E87.6 - HYPOKALEMIA Status: Acute Priority: High Current Visit: Yes (2) Cellulitis of face SNOMED Code(s): 053792243 ICD Code: L03.211 - CELLULITIS OF FACE Status: Acute Priority: High Current Visit: Yes (3) Methamphetamine abuse SNOMED Code(s): 888592713 ICD Code: F15.10 - OTHER STIMULANT ABUSE, UNCOMPLICATED Status: Acute Priority: High Current Visit: Yes - Patient Summary/Data Labs Pending at D/C: None Recommended Follow-up Testing/Procedures: Follow-up with primary care provider within 7-10 days of discharge, sooner if needed. -Patient was prescribed nicotine patches at discharge and will need to follow-up with this -Recommend repeat CBC, CMP, Magnesium at follow-up Follow-up with dentistry [facility] after discharge. Hospital Course: This is a 10-year-old female who presented to ED on 09/11/2020 with concerns over a facial infection. She was noted to have significant swelling and tenderness to the right side of her face and was unable to open her mouth fully. CT scan was obtained in the ED and showed right-sided facial cellulitis with possible abscess of 1.5 x 1.1 cm within the substance of the mass [place] muscle. She had mildly elevated WBC at 10.95 was not septic. She was started on Zosyn and vancomycin in the ED and this continued on the floor. ED physician did speak with ENT, Dr. Rao, and maxillofacial surgeon Dr. Villatoro who both recommended starting IV antibiotics and discharging patient when she was responding. Both advised patient will need dental follow-up as she has significant poor dentition. Urine drug screen was obtained and patient did test positive for methamphetamine. Social work and provider discussed with patient options for assistance with cessation. HIV and hepatitis C screen were obtained and were negative. Potassium was noted to be low at 3.4 and this was supplemented. Should be discharged home on 10 more days of twice daily 875/125 mg Augmentin. She reports she was able to find a dentist in [place] who would look at her mouth for the "bridging the dental gap "services. She was advised how if there is an abscess under her tooth she may be required to have this pulled and that this was very important. She voiced understanding. We discussed her smoking status and she was willing to be prescribed tobacco cessation patches. She was set 21 days of 21 mg nicotine patches. She was advised that she will need to follow this with her primary care provider as she will likely need a refill and continue dosing wean. Other home meds were continued. She was discharged home today. She was instructed to take her first dose of Augmentin tonight, 09/13/2020. She was also advised to take Tylenol, and/or Motrin as needed for pain. Instructed to follow-up with her primary care provider within 7 to 10 days of discharge, sooner if needed. Recommend repeat CBC, CMP, and magnesium at that time. Instructed to return the emergency room or contact her primary care provider should symptoms worsen. - Patient Instructions Diet: Usual Diet as Tolerated Activity: As Tolerated Notify Provider of: Fever, Increased Pain, Nausea and/or Vomiting Other/Special Instructions: Follow-up with a primary care provider within 7-10 days of discharge, sooner if needed. Stop using methamphetamine. It is incredibly important that you follow-up with a dentist afer discharge regarding your teeth and a possible abscess. You were prescribed an antibotic for your infection. Take this as prescribed until you run out, even if you feel 100% better. Take your first dose tongiht (09/13/2020). You make take tylenol or motrin for pain as needed. We discussed your smoking status and you indicated you would like nicotine patches at discharge. These were sent to your pharmacy. You were given a list of resources to contact for assistance with this. Your patch dosing will need to be decreased as you go and this can be done by your primary care provider. Should symptoms return or worsen contact your primary care provider or return to the Emergency Department. - Discharge Plan *PRESCRIPTION DRUG MONITORING PROGRAM REVIEWED*: No *COPY OF PRESCRIPTION DRUG MONITORING REPORT IN PATIENT YELITZA: No Prescriptions/Med Rec: Amoxicillin/Potassium Clav [Augmentin 875-125 Tablet] 1 each PO BID #20 tablet Nicotine [Habitrol] 21 mg TRDERM DAILY #21 patch Home Medications: Home Meds Non-Formulary Medication [NF Drug] 1 each VAG ASDIRECTED 09/11/20 [History] Amoxicillin/Potassium Clav [Augmentin 875-125 Tablet] 1 each PO BID #20 tablet 09/13/20 [Rx] Nicotine [Habitrol] 21 mg TRDERM DAILY #21 patch 09/13/20 [Rx] Oxygen Therapy Mode: Room Air Patient Handouts: Cellulitis, Adult, [id number], Steps to Quit Smoking, Sepsis, Self Care, Adult Forms: ED Department Discharge Referrals: Tonja Adam NP [Nurse Practitioner] - 09/23/20 10:30 am (check in is at 10:00 and appt. time is 10:30 This appt. is at [facility]) - Discharge Summary/Plan Comment DC Time >30 min.: Yes (45 mins) - General Info Date of Service: 09/13/20 Admission Dx/Problem (Free Text: Admission Diagnosis/Problem Admission Diagnosis/Problem Cellulitis Functional Status: Reports: Pain Controlled, Tolerating Diet, Ambulating, Urinating. Denies: New Symptoms - Review of Systems General: Reports: No Symptoms. Denies: Fever, Weakness, Malaise, Chills HEENT: Reports: Other (Mild left facial pain ). Denies: Sore Throat Pulmonary: Reports: No Symptoms. Denies: Shortness of Breath, Pleuritic Chest Pain, Cough, Sputum, Wheezing Cardiovascular: Reports: No Symptoms. Denies: Chest Pain, Palpitations, Dyspnea on Exertion, Edema Gastrointestinal: Reports: No Symptoms. Denies: Abdominal Pain, Constipation, Diarrhea, Nausea, Vomiting Genitourinary: Reports: No Symptoms. Denies: Pain Musculoskeletal: Reports: No Symptoms Skin: Reports: No Symptoms. Denies: Cyanosis Neurological: Reports: No Symptoms. Denies: Confusion, Pre-Existing Deficit, Difficulty Walking, Weakness, Gait Disturbance Psychiatric: Reports: No Symptoms - Patient Data Vitals - Most Recent: Last Vital Signs Temp 98.1 F 09/13/20 07:31 Pulse 59 L 09/13/20 07:31 Resp 14 09/13/20 07:31 BP 106/60 09/13/20 07:31 Pulse Ox 98 09/13/20 07:31 Weight - Most Recent: 152 lb 4.8 oz I&O - Last 24 hours: Intake & Output 09/12/20 09/13/20 09/13/20 22:59 06:59 14:59 Intake Total 1270 1050 Output Total 1050 950 Balance 220 100 Lab Results - Last 24 hrs: Laboratory Results - last 24 hr 09/13/20 09/13/20 Range/Units 05:15 05:15 WBC 7.18 (3.98-10.04) K/mm3 RBC 4.59 (3.98-5.22) M/mm3 Hgb 13.3 (11.2-15.7) gm/dl Hct 41.1 (34.1-44.9) % MCV 89.5 (79.4-94.8) fl MCH 29.0 (25.6-32.2) pg MCHC 32.4 (32.2-35.5) g/dl RDW Std Deviation 40.8 (36.4-46.3) fL Plt Count 324 (182-369) K/mm3 MPV 9.6 (9.4-12.3) fl Neut % (Auto) 68.1 (34.0-71.1) % Lymph % (Auto) 24.2 (19.3-51.7) % [place] % (Auto) 6.3 (4.7-12.5) % Eos % (Auto) 1.0 (0.7-5.8) Baso % (Auto) 0.3 (0.1-1.2) % Neut # (Auto) 4.89 (1.56-6.13) K/mm3 Lymph # (Auto) 1.74 (1.18-3.74) K/mm3 [place] # (Auto) 0.45 H (0.24-0.36) K/mm3 Eos # (Auto) 0.07 (0.04-0.36) K/mm3 Baso # (Auto) 0.02 (0.01-0.08) K/mm3 Sodium 138 (136-145) mEq/L Potassium 3.8 (3.5-5.1) mEq/L Chloride 105 (98-107) mEq/L Carbon Dioxide 24 (21-32) mEq/L Anion Gap 12.8 (5-15) BUN 4 L (7-18) mg/dL Creatinine 0.7 (0.55-1.02) mg/dL Est Cr Clr Drug Dosing 109.92 mL/min Estimated GFR (MDRD) > 60 (>60) mL/min BUN/Creatinine Ratio 5.7 L (14-18) Glucose 99 (74-106) mg/dL Calcium 8.2 L (8.5-10.1) mg/dL C-Reactive Protein 3.0 H* (<1.0) mg/dL JD Results - Last 24 hrs: Microbiology 09/11/20 06:30 Aerobic Blood Culture - Preliminary Blood - Venous - Lab Draw NO GROWTH AFTER 2 DAYS Anaerobic Blood Culture - Preliminary NO GROWTH AFTER 2 DAYS 09/11/20 06:19 Aerobic Blood Culture - Preliminary Blood - Venous NO GROWTH AFTER 2 DAYS Anaerobic Blood Culture - Preliminary NO GROWTH AFTER 2 DAYS Med Orders - Current: Current Medications Acetaminophen (Acetaminophen 325 Mg Tab) 650 mg PO Q4H PRN PRN Reason: Pain (Mild 1-3)/fever Last Admin: 09/13/20 04:02 Dose: 650 mg Documented by: Piperacillin Sod/Tazobactam (Sod 4.5 gm/ Sodium Chloride) 100 mls @ 25 mls/hr IV Q8H [facility] Last Admin: 09/13/20 04:01 Dose: 25 mls/hr Documented by: Vancomycin HCl 1 gm/ Sodium (Chloride) 250 mls @ 250 mls/hr IV Q12H [facility] Miscellaneous Information (Remove Patch) 0 ea TRDERM DAILY [facility] Nicotine (Nicotine 21 Mg/24 Hr Patch) 21 mg TRDERM DAILY [facility] Last Admin: 09/13/20 08:28 Dose: 21 mg Documented by: Ondansetron HCl (Ondansetron 4 Mg Tab.Dis) 4 mg PO Q4H PRN PRN Reason: nausea, able to take PO Oxycodone HCl (Oxycodone 5 Mg Tab) 5 - 10 mg PO Q4H PRN PRN Reason: Pain (moderate 4-6) Last Admin: 09/13/20 04:02 Dose: 5 mg Documented by: Sodium Chloride (Sodium Chloride 0.9% 10 Ml Syringe) 10 ml FLUSH ASDIRECTED [facility] Last Admin: 09/11/20 09:56 Dose: 10 ml Documented by: Vancomycin HCl (Pharmacy To Dose - Vancomycin) 1 dose .XX ASDIRECTED PRN PRN Reason: RX TO DOSE VANCO Discontinued Medications Enoxaparin Sodium (Enoxaparin 40 Mg/0.4 Ml Syringe) 40 mg SUBCUT DAILY [facility] Last Admin: 09/12/20 09:38 Dose: 40 mg Documented by: Sodium Chloride (Normal Saline) 1,000 mls @ 150 mls/hr IV ASDIRECTED [facility] Last Admin: 09/11/20 14:30 Dose: 150 mls/hr Documented by: Piperacillin Sod/Tazobactam (Sod 4.5 gm/ Sodium Chloride) 100 mls @ 200 mls/hr IV ONETIME ONE Stop: 09/11/20 11:11 Last Admin: 09/11/20 11:14 Dose: 200 mls/hr Documented by: Vancomycin HCl 1.5 gm/ Sodium (Chloride) 500 mls @ 250 mls/hr IV ONETIME ONE Stop: 09/11/20 13:59 Last Admin: 09/11/20 12:17 Dose: 250 mls/hr Documented by: Piperacillin Sod/Tazobactam (Sod 4.5 gm/ Sodium Chloride) 100 mls @ 25 mls/hr IV Q8H [facility] Last Admin: 09/12/20 11:17 Dose: Not Given Documented by: Vancomycin HCl 1 gm/ Sodium (Chloride) 250 mls @ 250 mls/hr IV Q12H [facility] Last Admin: 09/13/20 00:46 Dose: 250 mls/hr Documented by: Iopamidol (Iopamidol 612 Mg/Ml 100 Ml Bottle) 100 ml IVPUSH ONETIME ONE Stop: 09/11/20 09:36 Last Admin: 09/11/20 09:56 Dose: 100 ml Documented by: Potassium Chloride (Potassium Chloride 20 Meq Tab.Er) 40 meq PO BID ALIREZA Stop: 09/12/20 21:01 Last Admin: 09/12/20 20:07 Dose: 40 meq Documented by: Potassium Chloride (Potassium Chloride 20 Meq Tab.Er) 40 meq PO ONETIME ONE Stop: 09/13/20 09:01 Last Admin: 09/13/20 08:27 Dose: 40 meq Documented by: Vancomycin HCl (Pharmacy To Dose - Vancomycin) 1 dose .XX ONETIME ONE Stop: 09/11/20 11:42 Last Admin: 09/11/20 15:39 Dose: Not Given Documented by: - Exam Quality Assessment: Reports: DVT Prophylaxis. Denies: Supplemental Oxygen, Urine Catheter General: Reports: Alert, Oriented, Cooperative, No Acute Distress HEENT: Reports: Pupils Equal, Pupils Reactive, Mucous Membr. Moist/[place], Other (Very mild edema to right side of face. No redness or warmth noted. ) Neck: Reports: Supple, Trachea Midline Lungs: Reports: Clear to Auscultation, Normal Respiratory Effort Cardiovascular: Reports: Regular Rate, Regular Rhythm GI/Abdominal Exam: Normal Bowel Sounds, Soft, Non-Tender, No Distention (Female) Exam: Deferred Rectal (Female) Exam: Deferred Back Exam: Reports: Normal Inspection, Full Range of Motion Extremities: Normal Inspection, Normal Range of Motion, Non-Tender, No Pedal Edema, Normal Capillary Refill Skin: Reports: Warm, Intact Neurological: Reports: No New Focal Deficit Psy/Mental Status: Reports: Alert, Normal Affect, Normal Mood
[2020-09-13 11:27] VITALS: BP 117/91; PULSE 73
== END 2020-09-13 14:30 | disposition home or self-care (01) | DRG 603 ==
LOC: JD.ED 05:39 → JD.MS 12:05
PROVIDERS: ADMIT Family Medicine; ATTEND Family Medicine
DX: L03.211 Cellulitis of face (principal); L02.01 Cutaneous abscess of face; F15.10 Other stimulant abuse, uncomplicated; E87.6 Hypokalemia; F17.210 Nicotine dependence, cigarettes, uncomplicated; Z79.899 Other long term (current) drug therapy; Z79.52 Long term (current) use of systemic steroids; Z88.0 Allergy status to penicillin; Z20.822 Contact with and (suspected) exposure to COVID-19
CPT/HCPCS: 36415; 70491; 70491-26; 71045; 71045-26; 80048; 80053; 80306; 80307; 81001; 82550; 83605; 83735; 84443; 84484; 84703; 85007; 85025; 85027; 85379; 85652; 86140; 86803; 87040; 87086; 87088; 87641; 96365; 99221; 99232; 99239; 99284; 99285-25; A9270-GY; G0433; J1650; J2543; J3370; J7030; J7040; J7050; Q9967; U0002